=== PATIENT | female | born 1930 | race Caucasian/White ===

== ENCOUNTER 2017-05-19 13:25 | Inpatient (IN) | payer OTHER ==
[~2017-05-19] VITALS: Ht 170.2 cm; Wt 75.4 kg
[2017-05-19 14:40] LABS: HEMATOCRIT 36.1 % (36.0-46.0); HEMOGLOBIN 12.5 G/DL (11.9-15.5); MCHC 34.6 G/DL (30.0-36.0); MCV 92.3 FL (83-99); PLATELET COUNT 231 K/uL (156-360); RBC DIS.WIDTH-CV 13.1 % (11.8-14.6); RBC DIS.WIDTH-SD 44.4 % (39-53); RED BLOOD COUNT 3.91 M/uL (3.80-5.20); WHITE BLOOD COUNT 9.2 K/uL (4.1-10.2)
[2017-05-19 14:52] LABS: CHLORIDE 106 mEq/L (99-109); POTASSIUM 3.5 mEq/L (3.7-5.4); SODIUM 138 mEq/L (136-147)
[2017-05-19 14:53] LABS: GLUCOSE 103 mg/dL (70-99)
[2017-05-19 14:57] LABS: CREATININE 0.7 mg/dL (0.6-1.3); GFR ESTIMATE (CALCULATED) > 59 mL/min/
[2017-05-19 14:58] LABS: UREA NITROGEN (BUN) 7 mg/dL (9-23)
[2017-05-19 15:03] LABS: TROP-I INTERPRETATION NEGATIVE; TROPONIN-I 0.02 ng/mL (0.0-0.30)
[2017-05-19] MEDS ORDERED: CYANOCOBAL1000 MCG/2 IM (16:26)
[2017-05-19] MEDS ORDERED: PRESERVISION T1 EACH PO (16:26)
[2017-05-19] MEDS ORDERED: CALCIUM 500 +1 EACH PO (16:26)
[2017-05-19] MEDS ORDERED: AZOR 5/20 MG1 TABLET PO (16:26)
[2017-05-19] MEDS ORDERED: FISH OIL 1,0001 EAC7 PO (16:26)
[2017-05-19] MEDS ORDERED: ACTONEL35 MG PO (16:40)
[2017-05-19] MEDS ORDERED: FIBERCON625 MG PO (16:40)
[2017-05-19] MEDS ORDERED: WELCHOL625 MG PO (16:40)
[2017-05-19] MEDS ORDERED: TAB-A-VITE1 EACH PO (16:40)
[2017-05-19 20:58] VITALS: BP 178/76
[2017-05-20 00:10] VITALS: BP 151/69
[2017-05-20 04:21] VITALS: BP 137/63
[2017-05-20 06:39] LABS: CHLORIDE 105 MEQ/L (99-109); CREATININE 0.6 MG/DL (0.6-1.3); GFR ESTIMATE (CALCULATED) > 59 mL/min/; GLUCOSE 124 mg/dL (70-99); POTASSIUM 3.6 MEQ/L (3.7-5.4); SODIUM 138 MEQ/L (136-147); UREA NITROGEN (BUN) 9 mg/dL (9-23)
[2017-05-20 08:03] VITALS: BP 165/72
[2017-05-20 11:31] VITALS: BP 178/72
[2017-05-20 17:31] LABS: HEMATOCRIT 29.1 % (36.0-46.0); MCH 31.5 PG (29.0-34.0); MCHC 33.7 G/DL (30.0-36.0); MCV 93.6 FL (83-99); PLATELET COUNT 180 K/uL (156-360); RBC DIS.WIDTH-CV 13.4 % (11.8-14.6); RBC DIS.WIDTH-SD 45.9 % (39-53); WHITE BLOOD COUNT 12.9 K/uL (4.1-10.2)
[2017-05-20 17:32] LABS: HEMOGLOBIN 9.8 G/DL (11.9-15.5); RED BLOOD COUNT 3.11 M/uL (3.80-5.20)
[2017-05-20 20:35] VITALS: BP 116/53
[2017-05-21 00:20] VITALS: BP 121/58
[2017-05-21 05:20] VITALS: BP 143/66
[2017-05-21 07:16] LABS: HEMATOCRIT 25.7 % (36.0-46.0); HEMOGLOBIN 8.7 G/DL (11.9-15.5); MCV 94.5 FL (83-99)
[2017-05-21 07:34] LABS: CHLORIDE 102 MEQ/L (99-109); CREATININE 0.5 MG/DL (0.6-1.3); GFR ESTIMATE (CALCULATED) > 59 mL/min/; GLUCOSE 117 mg/dL (70-99); POTASSIUM 3.4 MEQ/L (3.7-5.4); SODIUM 136 MEQ/L (136-147); UREA NITROGEN (BUN) 5 mg/dL (9-23)
[2017-05-21 08:24] VITALS: BP 145/65
[2017-05-22] VITALS (14 sets, daily range): BP systolic 128–148; BP diastolic 60–79
[2017-05-22 08:23] LABS: HEMATOCRIT 20.6 % (36.0-46.0); MCV 93.6 FL (83-99)
[2017-05-22 20:22] LABS: HEMATOCRIT 28.9 % (36.0-46.0); HEMOGLOBIN 10.2 G/DL (11.9-15.5); MCV 90.6 FL (83-99)
[2017-05-23 00:24] VITALS: BP 162/71
[2017-05-23 05:38] LABS: HEMATOCRIT 28.9 % (36.0-46.0); MCV 90.6 FL (83-99)
[2017-05-23 09:34] VITALS: BP 162/70
[2017-05-23 16:30] VITALS: BP 168/75
[2017-05-23 18:06] LABS: HEMATOCRIT 29.3 % (36.0-46.0); MCV 89.9 FL (83-99)
[2017-05-23 19:30] VITALS: BP 162/70
[2017-05-24 00:50] VITALS: BP 171/75
[2017-05-24 05:55] LABS: HEMATOCRIT 28.4 % (36.0-46.0); HEMOGLOBIN 9.7 G/DL (11.9-15.5); MCV 89.6 FL (83-99)
[2017-05-24 07:38] VITALS: BP 155/72
[2017-05-24 14:29] LABS: HEMATOCRIT 30.7 % (36.0-46.0); HEMOGLOBIN 10.5 G/DL (11.9-15.5); MCV 90.8 FL (83-99)
[2017-05-24 14:52] LABS: CHLORIDE 97 MEQ/L (99-109); CREATININE 0.5 MG/DL (0.6-1.3); GFR ESTIMATE (CALCULATED) > 59 mL/min/; GLUCOSE 114 mg/dL (70-99); POTASSIUM 3.1 MEQ/L (3.7-5.4); SODIUM 133 MEQ/L (136-147); UREA NITROGEN (BUN) 8 mg/dL (9-23)
[2017-05-24 15:40] VITALS: BP 137/63
[2017-05-24 17:57] LABS: HEMATOCRIT 28.8 % (36.0-46.0); MCV 90.6 FL (83-99)
[2017-05-24 21:14] VITALS: BP 127/60
[2017-05-25 00:41] VITALS: BP 162/67
[2017-05-25 06:16] LABS: HEMATOCRIT 27.5 % (36.0-46.0); HEMOGLOBIN 9.3 G/DL (11.9-15.5); MCV 90.8 FL (83-99)
[2017-05-25 08:00] VITALS: BP 115/56
[2017-05-25 16:01] VITALS: BP 125/58
[2017-05-25 18:29] LABS: HEMATOCRIT 28.5 % (36.0-46.0); HEMOGLOBIN 9.7 G/DL (11.9-15.5); MCV 91.3 FL (83-99)
[2017-05-25 20:27] VITALS: BP 121/53
[2017-05-25 23:39] VITALS: BP 135/61
[2017-05-26 05:08] VITALS: BP 145/67
[2017-05-26 08:35] VITALS: BP 141/63
[2017-05-26 09:22] LABS: HEMATOCRIT 27.8 % (36.0-46.0); HEMOGLOBIN 9.4 G/DL (11.9-15.5)
[2017-05-26 09:47] LABS: CHLORIDE 102 MEQ/L (99-109); CREATININE 0.4 MG/DL (0.6-1.3); GFR ESTIMATE (CALCULATED) > 59 mL/min/; GLUCOSE 110 mg/dL (70-99); MAGNESIUM 2.1 mg/dl (1.3-2.7); POTASSIUM 3.3 MEQ/L (3.7-5.4); SODIUM 137 MEQ/L (136-147); UREA NITROGEN (BUN) 11 mg/dL (9-23)
[2017-05-26 15:49] VITALS: BP 143/63
== END 2017-05-26 18:43 | DRG 481 ==
LOC: EME 13:25 → EDOF 18:20 → 3EAST 18:42 → EDOF 18:42 → ENRESERV 18:43 → 3EAST 20:27
PROVIDERS: Emergency Medicine; Internal Medicine; Orthopaedic Surgery
PROC: 0QS736Z Reposition Left Upper Femur with Intramedullary Internal Fixation Device, Percutaneous Approach (ICD-10-PCS; principal; 2017-05-20)
PROC: 30233N1 Transfusion of Nonautologous Red Blood Cells into Peripheral Vein, Percutaneous Approach (ICD-10-PCS; 2017-05-22)
DX: S72.142A Displaced intertrochanteric fracture of left femur, initial encounter for closed fracture (principal); D62 Acute posthemorrhagic anemia; E87.6 Hypokalemia; I10 Essential (primary) hypertension; M81.0 Age-related osteoporosis without current pathological fracture; W01.0XXA Fall on same level from slipping, tripping and stumbling without subsequent striking against object, initial encounter; Y93.01 Activity, walking, marching and hiking; Y92.014 Private driveway to single-family (private) house as the place of occurrence of the external cause
CPT/HCPCS: 71045; 73502; 73552; 76000; 80048; 80400; 82088 90; 82533 91; 83735; 84132; 84133; 84244 90; 84484; 85014; 85018; 85027; 86850; 86900; 86901; 86920; 93005; 99281; 99285; C1713; J0131; J0690; J1170; J1650; J2270; J2405; J3010; J3480; J7030; P9016

== ENCOUNTER 2017-07-14 12:48 | Emergency (ER) | payer OTHER ==
[~2017-07-14] VITALS: Ht 170.2 cm; Wt 67.4 kg
[~2017-07-14 12:48] MED LIST: ACTONEL35 MG PO; AZOR 5/20 MG1 TABLET PO; CALCIUM 500 +1 EACH PO; CYANOCOBAL1000 MCG/2 IM; FIBERCON625 MG PO; FISH OIL 1,0001 EAC7 PO; PRESERVISION T1 EACH PO; TAB-A-VITE1 EACH PO; WELCHOL625 MG PO
[2017-07-14 13:33] LABS: BASOPHIL (%) 0.8 % (0-1); BASOPHIL COUNT 0.1 K/uL (0-0.1); EOSINOPHIL (%) 1.3 % (0-5); EOSINOPHIL COUNT 0.1 K/uL (0-0.3); HEMATOCRIT 39.3 % (36.0-46.0); IMMATURE GRANULOCYTE (%) 0.3 % (0.0-0.7); LYMPHOCYTE (%) 23.1 % (15-42); LYMPHOCYTE COUNT 1.8 K/uL (1.0-2.8); MCH 31.2 PG (29.0-34.0); MCHC 33.1 G/DL (30.0-36.0); MCV 94.2 FL (83-99); MONOCYTE (%) 8.9 % (3-12); MONOCYTE COUNT 0.7 K/uL (0-0.8); NEUTROPHIL (%) 65.6 % (45-76); NEUTROPHIL COUNT 5.1 K/uL (1.8-6.4); PLATELET COUNT 288 K/uL (156-360); RED BLOOD COUNT 4.17 M/uL (3.80-5.20); WHITE BLOOD COUNT 7.7 K/uL (4.1-10.2)
[2017-07-14 13:35] LABS: INTER. NORMALIZED RATIO 1.1
[2017-07-14 13:38] LABS: PTT 28.4 SEC (25-37)
[2017-07-14 13:39] LABS: ALBUMIN 3.6 g/dL (3.2-4.8); CHLORIDE 105 mEq/L (99-109); POTASSIUM 3.9 mEq/L (3.7-5.4); SODIUM 139 mEq/L (136-147)
[2017-07-14 13:40] LABS: MAGNESIUM 2.2 mg/dL (1.3-2.7)
[2017-07-14 13:42] LABS: GLUCOSE 100 mg/dL (70-99); TOTAL PROTEIN 8.8 g/dL (6.4-8.3)
[2017-07-14 13:44] LABS: TOTAL BILIRUBIN 0.4 mg/dL (0.0-1.0)
[2017-07-14 13:45] LABS: ALKALINE PHOSPHATASE 90 IU/L (3-129); CREATININE 0.7 mg/dL (0.6-1.3); GFR ESTIMATE (CALCULATED) > 59 mL/min/
[2017-07-14 13:47] LABS: AST (GOT) 26 IU/L (2-34); UREA NITROGEN (BUN) 8 mg/dL (9-23)
[2017-07-14 13:48] LABS: ALT (GPT) 13 IU/L (3-49)
[2017-07-14 13:57] LABS: APPEARANCE CLEAR ((CLEAR)); BILIRUBIN NEGATIVE; BLOOD SMALL; COLOR YELLOW ((YELLOW)); GLUCOSE (STRIP) NEGATIVE; KETONES NEGATIVE; LEUKOCYTES TRACE; NITRITE POSITIVE; PROTEIN (STRIP) NEGATIVE; SPECIFIC GRAVITY 1.008 (1.000-1.030); UROBILINOGEN 0.2 MG/DL (0.2-1.0)
[2017-07-14 14:01] LABS: BACTERIA 1+ /HPF; EPITHELIAL CELLS RARE /HPF; MUCUS TRACE /LPF; RED BLOOD CELLS 0-5 /HPF (0-5); UCUL ADDED? NO; WHITE BLOOD CELLS 0-5 /HPF (0-5)
[2017-07-14 17:13] VITALS: BP 163/70
[2017-07-18] MEDS ORDERED: PREVAGEN PO (09:51)
[2017-07-18] MEDS ORDERED: VITAMIN D31000 UNI2 PO (09:51)
[2017-07-18] MEDS ORDERED: FIBERCON625 MG PO (09:52)
[2017-07-18] MEDS ORDERED: STOOL SOFTENER100 M1 PO (09:53)
[2017-07-18] MEDS ORDERED: TYLENOL EXTRA500 MG PO (09:55)
[2017-07-18] MEDS ORDERED: ADVIL,NUPRIN,M200 MG PO (09:56)
== END 2017-07-14 17:14 | disposition home or self-care (01) ==
LOC: EME 12:48
PROVIDERS: Emergency Medicine
DX: K42.9 Umbilical hernia without obstruction or gangrene (principal); K57.90 Diverticulosis of intestine, part unspecified, without perforation or abscess without bleeding; K21.9 Gastro-esophageal reflux disease without esophagitis; I10 Essential (primary) hypertension; F41.9 Anxiety disorder, unspecified
CPT/HCPCS: 74177; 80053; 81003; 83735; 85025; 85610; 85730; 99281; 99285; J2270; J7040

== ENCOUNTER 2017-07-20 09:20 | Day surgery (SDC) | payer OTHER ==
[~2017-07-20] VITALS: Ht 167.6 cm; Wt 63.5 kg
[~2017-07-20 09:20] MED LIST changes: +ADVIL,NUPRIN,M200 MG PO; +PREVAGEN PO; +STOOL SOFTENER100 M1 PO; +TYLENOL EXTRA500 MG PO; +VITAMIN D31000 UNI2 PO
[2017-07-20 09:53] VITALS: BP 173/77
[2017-07-20] MEDS ORDERED: NORCO 5/3251 TABLET PO (12:55)
[2017-07-20 15:29] VITALS: BP 146/65
[2017-07-20 16:42] VITALS: BP 169/74
== END 2017-07-20 16:59 | disposition home or self-care (01) ==
LOC: SDC 09:20
PROC: 0WUF4JZ Supplement Abdominal Wall with Synthetic Substitute, Percutaneous Endoscopic Approach (ICD-10-PCS; principal; 2017-07-20)
DX: K43.9 Ventral hernia without obstruction or gangrene (principal); I10 Essential (primary) hypertension; E78.00 Pure hypercholesterolemia, unspecified; F03.90 Unspecified dementia, unspecified severity, without behavioral disturbance, psychotic disturbance, mood disturbance, and anxiety
CPT/HCPCS: 88302; C1781; J0330; J0690; J1100; J1170; J2710; J3010; S0020